=== PATIENT | male | born 1980 | race African-American/Black ===

== ENCOUNTER → 2016-09-20 | Outpatient (CLI) | payer OTHER ==
[2016-09-20 14:18] LABS: ALANINE AMINOTRANSFERASE 61 U/L (21-72); ALBUMIN 4.9 g/dL (3.5-5.0); ALKALINE PHOSPHATASE 62 U/L (38-126); ANION GAP 13 (5-19); ASPARTATE AMINO TRANSFERASE 38 U/L (17-59); BILIRUBIN,TOTAL 1.4 mg/dL (0.2-1.3); BLOOD UREA NITROGEN 9 mg/dL (7-20); CALCIUM 10.2 mg/dL (8.4-10.2); CARBON DIOXIDE 27 mmol/L (22-30); CHLORIDE 101 mmol/L (98-107); CHOLESTEROL 184.69 mg/dL (0-200); CREATININE RESULT 0.98 mg/dL (0.52-1.25); Direct HDL 50 mg/dL (>40); GLUCOSE 81 mg/dL (75-110); POTASSIUM 4.5 mmol/L (3.6-5.0); SODIUM 141.1 mmol/L (137-145); TOTAL PROTEIN 8.3 g/dL (6.3-8.2); TRIGLYCERIDES 72 mg/dL (<150)
[2016-09-20 14:30] LABS: DIRECT LDL 111 mg/dL (<100)
== END ==
LOC: CCC 12:57
DX: I10 Essential (primary) hypertension (principal); G47.33 Obstructive sleep apnea (adult) (pediatric)
CPT/HCPCS: 36415; 80053; 80061; 83036; 84443

== ENCOUNTER 2017-03-16 11:40 | Emergency (ER) | payer OTHER ==
--- NOTE | 2017-03-16 13:08 | ER Document Report ---
ED GI Bleed / Rectal Pain - General Chief Complaint: Hemorrhoids Stated Complaint: BOTTOM PAIN Time Seen by Provider: 03/16/17 12:43 Mode of Arrival: Ambulatory Information source: Patient TRAVEL OUTSIDE OF THE [place] IN LAST 30 DAYS: No - HPI Patient complains to provider of: Hemorrhoids, Rectal pain Onset: Last week Timing/Duration: Constant Quality of pain: Achy, Fullness, Pressure Severity of symptoms: Moderate Notes: 37-year-old male with a history of prior hemorrhoids presents with rectal pain over the past week. This is been worse over the past 2-3 days. He reports is disrupting his sleep. He is using preparation H, medical wipes, and using stool softener. He reports his stool is appropriately thin. He denies any bleeding. He was seen by gastroenterology approximately 2 months ago with the plan for colonoscopy. No issues of hemorrhoids were discussed at that time. His next visit is not for another month. Patient denies any nausea or vomiting , abdominal pain, or other urgent concerns. - Related Data Allergies/Adverse Reactions: iodine [Iodine] Allergy (Verified 03/16/17 11:45) swelling Shellfish * [Shellfish] Allergy (Verified 03/16/17 11:45) swelling Past Medical History - General Information source: Patient - Social History Smoking Status: Never Smoker Family History: Reviewed & Not Pertinent, Arthritis, CAD, CVA, DM, Hyperlipidemia, Hypertension, Malignancy, Thyroid Disfunction - Medical History Notes: Hypertension - Past Medical History Cardiac Medical History: Reports: Hx Hypertension Renal/ Medical History: Denies: Hx Peritoneal Dialysis Musculoskeltal Medical History: Reports Hx Arthritis, Reports Hx Musculoskeletal Deformity, Reports Hx Musculoskeletal Trauma Traumatic Medical History: Reports: Hx Fractures - Left elbow Past Surgical History: Reports: Hx Orthopedic Surgery - left elbow plates and screws - Immunizations Immunizations up to date: Yes Hx Diphtheria, Pertussis, Tetanus Vaccination: Yes Hx Pneumococcal Vaccination: 07/30/00 Review of Systems - Review of Systems Notes: REVIEW OF SYSTEMS: CONSTITUTIONAL : Denies fever, chills, or sweats. Denies recent illness. CARDIOVASCULAR: Denies chest pain. Denies palpitations or racing or irregular heart beat. Denies ankle edema. RESPIRATORY: Denies cough, cold, or chest congestion. Denies shortness of breath, difficulty breathing, or wheezing. GASTROINTESTINAL: Denies abdominal pain or distention. Denies nausea, vomiting , or diarrhea. Denies blood in vomitus, stools, or per rectum. Positive for rectal pain with a palpable lump at his anus. See HPI GENITOURINARY: Denies difficulty urinating, painful urination, burning, frequency, blood in urine, or discharge. MUSCULOSKELETAL: Denies back or neck pain or stiffness. Denies joint pain or swelling. SKIN: Denies rash, lesions or sores. HEMATOLOGIC : Denies easy bruising or bleeding. LYMPHATIC: Denies swollen, enlarged glands. NEUROLOGICAL: Denies confusion or altered mental status. Denies passing out or loss of consciousness. Denies dizziness or lightheadedness. Denies headache. Denies weakness or paralysis or loss of use of either side. Denies problems with gait or speech. Denies sensory loss, numbness, or tingling. Denies seizures. PSYCHIATRIC: Denies anxiety or stress. Denies depression, suicidal ideation, or homicidal ideation. ALL OTHER SYSTEMS REVIEWED AND NEGATIVE. Physical Exam - Vital signs Vitals: Temp Pulse Resp BP Pulse Ox 97.9 F 84 22 H 178/79 H 97 03/16/17 11:47 03/16/17 11:47 03/16/17 11:47 03/16/17 11:47 03/16/17 11:47 - Notes Notes: PHYSICAL EXAMINATION: GENERAL: Well-appearing, well-nourished and in no acute distress. HEAD: Atraumatic, normocephalic. ENT: Nares patent, oropharynx clear without exudates. Moist mucous membranes. NECK: Normal range of motion, supple without lymphadenopathy LUNGS: Breath sounds clear to auscultation bilaterally and equal. No wheezes rales or rhonchi. HEART: Regular rate and rhythm without murmurs ABDOMEN: Soft, nontender, nondistended abdomen. No guarding, no rebound. No masses appreciated. Rectal: Notable bulge on the right side of the anus. This is consistent with a thrombosed hemorrhoid. There is no blood present. The area is slightly tender. Musculoskeletal: Normal range of motion, no pitting or edema. No cyanosis. NEUROLOGICAL: Cranial nerves grossly intact. Normal speech, normal gait. Normal sensory, motor exams PSYCH: Normal mood, normal affect. SKIN: Warm, Dry, normal turgor, no rashes or lesions noted. Course - Re-evaluation Re-evalutation: 03/16/17 13:08 37-year-old male with the appearance of a thrombosed hemorrhoid. We will continue steroid medications. I will prescribe HC mental, which has lidocaine as well for discomfort. 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 - Vital Signs Vital signs: Temp Pulse Resp BP Pulse Ox 97.9 F 84 22 H 178/79 H 97 03/16/17 11:47 03/16/17 11:47 03/16/17 11:47 03/16/17 11:47 03/16/17 11:47 Discharge - Discharge Clinical Impression: Acute hemorrhoid Condition: Good Disposition: HOME, SELF-CARE Additional Instructions: Hemorrhoids You have hemorrhoids. These are formed by enlargement of veins around the anus. The cause is increased pressure in the veins, from or straining at bowel movements. Hemorrhoids often cause itching and bleeding with bowel movements. When a hemorrhoid becomes clotted, severe pain and swelling result. Soothing creams and suppositories are often prescribed. Warm sitz-baths may also decrease pain, swelling, and itching. Eat a high-fiber diet. Stool softeners such as Metamucil will help. Keep the area very clean. Medicated cleansing pads (such as Tucks) are useful after bowel movements. A hose-mounted shower unit (like a shower massager at low water pressure) can be used to clean around tender hemorrhoid tags. You should call the doctor or return if you develop fever, increasing pain , or an enlarging mass around the anus, or if you simply fail to improve with treatment. Prescriptions: Hydrocortisone/Lidocaine/Aloe [Lidocaine-Hc 2-2% Cream Kit] 1 each RC QID #20 kit Referrals: FERN RENO MD [[facility]] - Follow up in 3-5 days
[2017-03-16 13:39] VITALS: BP 123/76
== END 2017-03-16 13:39 | disposition home or self-care (01) ==
LOC: ER 11:40
DX: K64.9 Unspecified hemorrhoids (principal)
CPT/HCPCS: 99282

== ENCOUNTER → 2017-06-28 | Outpatient (CLI) | payer OTHER ==
[2017-06-28 17:26] LABS: ANION GAP 14 (5-19); BLOOD UREA NITROGEN 12 mg/dL (7-20); CALCIUM 9.8 mg/dL (8.4-10.2); CARBON DIOXIDE 27 mmol/L (22-30); CHLORIDE 103 mmol/L (98-107); CREATININE RESULT 1.05 mg/dL (0.52-1.25); GLUCOSE 82 mg/dL (75-110); POTASSIUM 4.3 mmol/L (3.6-5.0); SODIUM 143.9 mmol/L (137-145)
[2017-06-28 18:36] LABS: CHLAM PCR NOT DETECTED (NOT DETECT)
== END ==
LOC: OD 15:39
DX: N39.8 Other specified disorders of urinary system (principal); R30.0 Dysuria
CPT/HCPCS: 36415; 80048; 87491; 87591

== ENCOUNTER 2017-10-09 13:29 | Emergency (ER) | payer SELFPAY ==
[2017-10-09] MEDS ORDERED: KETOROLAC TROMETHAMINE INJ/PF 30 MG/1 ML SDV IM ONE (14:51)
--- NOTE | 2017-10-09 14:57 | ER Document Report ---
ED Neck/Back Problem - General Chief Complaint: Back Pain Stated Complaint: BACK/SHOULDER PAIN Time Seen by Provider: 10/09/17 14:19 Mode of Arrival: Ambulatory Information source: Patient TRAVEL OUTSIDE OF THE [place] IN LAST 30 DAYS: No - HPI Patient complains to provider of: Pain, Lower back Onset: Last week Notes: The patient is here with multiple complaints. Been having some lower back pain and spasms for the last week now. He denies any traumatic injury or fall. He states that he recently started walking and thinks that that is what has flared his back up. He is on no blood thinning medications, he denies any bowel or bladder dysfunction, IV drug use, fever, numbness, tingling, weakness. Pain is worse with movement of the lower back. It seems to be better when he is laying flat. He also complained of some left trapezius muscle pain. This is been going on for the last 3-4 days. Pain is worse with touching the area and movement. He states that he sleeps on his side and thinks that he slept wrong on his arm. He denies any numbness, tingling, weakness to the arm. He denies any chest pain or shortness of breath. He also complains of some left elbow pain. He states that this pain is chronic. He had a prior olecranon fracture and has hardware in his elbow. He tells me that the orthopedic surgeon would like to remove the hardware, but he does not want to go through the surgery and has had pain in his elbow ever since having surgery. There has been no new injury to this area. He denies any redness, fever, numbness, tingling, weakness distal. Patient has no other complaints at this time. - Related Data Allergies/Adverse Reactions: iodine [Iodine] Allergy (Verified 03/16/17 11:45) swelling Shellfish * [Shellfish] Allergy (Verified 03/16/17 11:45) swelling Past Medical History - Social History Smoking Status: Never Smoker Chew tobacco use (# tins/day): No Frequency of alcohol use: Occasional Drug Abuse: None Family History: Reviewed & Not Pertinent, Arthritis, CAD, CVA, DM, Hyperlipidemia, Hypertension, Malignancy, Thyroid Disfunction Patient has suicidal ideation: No Patient has homicidal ideation: No - Past Medical History Cardiac Medical History: Reports: Hx Hypertension Renal/ Medical History: Denies: Hx Peritoneal Dialysis Musculoskeltal Medical History: Reports Hx Arthritis, Reports Hx Musculoskeletal Deformity, Reports Hx Musculoskeletal Trauma Traumatic Medical History: Reports: Hx Fractures - Left elbow Past Surgical History: Reports: Hx Orthopedic Surgery - left elbow plates and screws - Immunizations Immunizations up to date: Yes Hx Diphtheria, Pertussis, Tetanus Vaccination: Yes Hx Pneumococcal Vaccination: 07/30/00 Review of Systems - Review of Systems -: Yes All other systems reviewed and negative Physical Exam - Vital signs Vitals: Temp Pulse Resp BP Pulse Ox 98.1 F 84 18 183/102 H 97 10/09/17 13:36 10/09/17 13:36 10/09/17 13:36 10/09/17 13:36 10/09/17 13:36 - Notes Notes: GENERAL: alert, cooperative, nontoxic, no distress. HEAD: normocephalic, atraumatic EYES: conjunctiva pink without discharge, no external redness or swelling. EARS: no external swelling, no external redness NOSE: atraumatic, no external swelling MOUTH/THROAT: mucous membranes moist and pink, posterior pharynx without erythema, swelling, exudate. No trismus or drooling. NECK: soft, supple, full range of motion, no meningismus. CHEST: no distress, lungs clear and equal throughout. No wheezing, rales, rhonchi. CARDIAC: regular rate and rhythm, no murmur, normal capillary refill, normal pulses. No peripheral edema noted. ABDOMEN: soft, nontender, no pusatile mass. BACK: No CVA tenderness. Tenderness to the bilateral lumbar paraspinal muscles. No midline tenderness step-offs or crepitus. No rash. EXTREMITIES: full range of motion of all extremities. No redness, no swelling. Mild tenderness to palpation of the left trapezius muscle with mild muscle spasm. Full range of motion of the left arm. No rash noted in this area. Healed postsurgical incision to the left elbow with no significant tenderness. No swelling or redness. Compartments are soft. Full range of motion. NEURO: alert and oriented A&O x 3, no focal deficits, full range of motion of all extremities. 5 out of 5 flexion and extension of the lower extremities bilaterally. Patellar and Achilles deep tendon reflexes are +2 bilaterally. Normal sensation with no saddle anesthesia. Patient can dorsiflex the great toes bilaterally. PYSCH: appropriate mood, affect. Patient is cooperative. SKIN: pink, warm, dry, no rash. Course - Re-evaluation Re-evalutation: 10/09/17 14:54 Patient is nontoxic appearing with stable vitals. The patient is here with complaints of low back pain, left elbow pain, left trapezius pain. Said no recent falls or injuries. Low back pain certainly appears to be muscular skeletal in nature. This is started after he started walking a mile to help himself lose weight. He has no midline tenderness. He has no sign of cauda equina, epidural abscess/bleed, AAA, discitis, osteomyelitis, limb ischemia. Patient also has some left trapezius muscle spasm noted. There was no trauma. He has no chest pain or shortness of breath. This does not appear to be ACS. Left elbow pain is chronic from prior injury. There is no signs of acute infection or new injury to this area. He has normal neurovascular exam at this time. This point the patient will be given a shot of Toradol in the emergency department. He will be discharged home with Voltaren and Zanaflex. He is instructed to continue walking. To stretch as much as possible. To follow-up if not better in 1 week, sooner for increasing pain, high fever, numbness, tingling, weakness, bowel or bladder dysfunction, redness, any further concerns. The patient's emergency department workup and current diagnosis were explained to the patient and or family. Follow-up instructions were provided. Medications if prescribed were discussed. Instructions for when to return to the emergency department including specific worrisome symptoms were discussed with the patient and/or family. Patient has a history of hypertension and states that he has taken his blood pressure medication this morning. He has no hypertensive symptoms at this time. - Vital Signs Vital signs: Temp Pulse Resp BP Pulse Ox 98.1 F 84 18 183/102 H 97 10/09/17 13:36 10/09/17 13:36 10/09/17 13:36 10/09/17 13:36 10/09/17 13:36 Discharge - Discharge Clinical Impression: Chronic pain of left elbow Lumbar strain Qualifiers: Encounter type: initial encounter Qualified Code(s): S39.012A - Strain of muscle, fascia and tendon of lower back, initial encounter Strain of left trapezius muscle Qualifiers: Encounter type: initial encounter Qualified Code(s): S46.812A - Strain of other muscles, fascia and tendons at shoulder and upper arm level, left arm, initial encounter Condition: Stable Disposition: HOME, SELF-CARE Instructions: Low Back Pain ([facility]), Chronic Pain Control ([facility]) Additional Instructions: Take medications as prescribed. Apply heat to sore area. Stretch. Continue walking. Follow-up with your doctor if not better in 1 week, sooner for increasing pain, high fever, numbness, tingling, weakness, bowel or bladder dysfunction, chest pain or shortness of breath, redness or swelling, or for any further concerns. Your blood pressure was elevated during today's visit. Have this rechecked with your doctor. The medication you were prescribed today may cause drowsiness. Do not drive or operate heavy machinery while taking this medication. Prescriptions: Diclofenac Sodium [Voltaren 50 Mg Tablet.] 50 mg PO BID #20 tablet. Tizanidine HCl [Zanaflex 4 Mg Tablet] 4 mg PO BID PRN #10 tablet PRN Reason: Forms: Elevated Blood Pressure, Smoking Cessation Education Referrals: [facility] [Provider Group] - Follow up as needed
[2017-10-09 15:25] VITALS: BP 162/101
== END 2017-10-09 15:25 | disposition home or self-care (01) ==
LOC: ER 13:29
DX: S39.012A Strain of muscle, fascia and tendon of lower back, initial encounter (principal); S29.012A Strain of muscle and tendon of back wall of thorax, initial encounter; X58.XXXA Exposure to other specified factors, initial encounter; M62.830 Muscle spasm of back; M25.522 Pain in left elbow; G89.29 Other chronic pain; I10 Essential (primary) hypertension; Z87.81 Personal history of (healed) traumatic fracture; Z98.890 Other specified postprocedural states; Z91.013 Allergy to seafood; Z79.899 Other long term (current) drug therapy
CPT/HCPCS: 99283; 96372; J1885

== ENCOUNTER 2017-12-13 21:00 | Emergency (ER) | payer SELFPAY ==
[2017-12-13] MEDS ORDERED: ACETAMINOPHEN 325 MG TABLET PO ONE (21:46)
[2017-12-13] MEDS ORDERED: ACETAMINOPHEN 325 MG TABLET ONE (21:49)
--- NOTE | 2017-12-13 22:41 | RADIOLOGY REPORT (SQ) ---
EXAM DESCRIPTION: KNEE RIGHT 4 VIEWS COMPLETED DATE/TIME: 12/13/2017 10:30 pm REASON FOR STUDY: fall COMPARISON: None. NUMBER OF VIEWS: Four views. TECHNIQUE: AP, lateral, and both oblique radiographic images acquired of the right knee. LIMITATIONS: None. FINDINGS: MINERALIZATION: Normal. BONES: No acute fracture or dislocation. No worrisome bone lesions. JOINT: No effusion. SOFT TISSUES: No soft tissue swelling. No radio-opaque foreign body. OTHER: No other significant finding. IMPRESSION: NEGATIVE STUDY OF THE RIGHT KNEE. NO RADIOGRAPHIC EVIDENCE OF ACUTE INJURY. TECHNICAL DOCUMENTATION: JOB ID: [id number] [employer]- All Rights Reserved Reading location - IP/workstation name: [email or web address]
--- NOTE | 2017-12-14 00:42 | ER Document Report ---
HPI - HPI Pain Level: 5 Notes: Patient is a 37-year-old male no significant past medical history presents to the ED complaining of right knee pain status post injury prior to arrival. Patient states that he is working on the yard when he stepped in a hole and twisted his knee. Patient states that he has had difficulty weightbearing since then due to the pain. Patient states that his knee does feel a little unstable as well. He has not noticed any obvious swelling or bruising. Pain does not radiate. Tylenol was given at triage. Denies any smoking or IV drug use. Denies any headache, fever, URI, sore throat, chest pain, palpitations, syncope, cough, shortness of breath, wheeze, dyspnea, abdominal pain, nausea/ vomiting/diarrhea, urinary retention, dysuria, hematuria, loss of control of bowel or bladder, numbness/tingling, saddle anesthesia, muscle paralysis/ weakness, or rash. - ROS Systems Reviewed and Negative: Yes All other systems reviewed and negative - EENT EENT: DENIES: Sore Throat, Ear Pain, Eye problems - NEURO Neurology: DENIES: Headache, Weakness, Vision blurred, Dizzinesss / Vertigo - CARDIOVASCULAR Cardiovascular: DENIES: Chest pain - RESPIRATORY Respiratory: DENIES: Trouble Breathing, Coughing - GASTROINTESTINAL Gastrointestinal: DENIES: Abdominal Pain, Black / Bloody Stools - URINARY Urinary: DENIES: Dysuria, Urgency, Frequency - REPRODUCTIVE Reproductive: DENIES: : - MUSCULOSKELETAL Musculoskeletal: REPORTS: Extremity pain - r knee Past Medical History - Social History Smoking Status: Never Smoker Family History: Reviewed & Not Pertinent, Arthritis, CAD, CVA, DM, Hyperlipidemia, Hypertension, Malignancy, Thyroid Disfunction Patient has suicidal ideation: No Patient has homicidal ideation: No - Past Medical History Cardiac Medical History: Reports: Hx Hypertension Renal/ Medical History: Denies: Hx Peritoneal Dialysis Musculoskeltal Medical History: Reports Hx Arthritis, Reports Hx Musculoskeletal Deformity, Reports Hx Musculoskeletal Trauma Traumatic Medical History: Reports: Hx Fractures - Left elbow Past Surgical History: Reports: Hx Orthopedic Surgery - left elbow plates and screws - Immunizations Immunizations up to date: Yes Hx Diphtheria, Pertussis, Tetanus Vaccination: Yes Hx Pneumococcal Vaccination: 07/30/00 Vertical Provider Document - CONSTITUTIONAL Agree With Documented VS: Yes Notes: PHYSICAL EXAMINATION: GENERAL: Well-appearing, well-nourished and in no acute distress. LUNGS: Breath sounds clear to auscultation bilaterally and equal. No wheezes rales or rhonchi. HEART: Regular rate and rhythm without murmurs, rubs, gallops. Musculoskeletal: Rt knee: FROM to passive/active. Strength 5+/5. N/V intact distal. + tenderness to the medial joint line. No obvious effusion, erythema, warmth, or swelling. Unable to adequately assess ligaments/meniscus due to resistance at this time. Extremities: No cyanosis, clubbing, or edema b/l. Peripheral pulses 2+. Capillary refill less than 3 seconds. NEUROLOGICAL: Normal speech, limping gait. Normal sensory, motor exams PSYCH: Normal mood, normal affect. SKIN: Warm, Dry, normal turgor, no rashes or lesions noted. - INFECTION CONTROL TRAVEL OUTSIDE OF THE [place] IN LAST 30 DAYS: No Course - Re-evaluation Re-evalutation: 12/14/17 00:40 Patient is an afebrile, well-hydrated, 37-year-old male who presents to the ED with right knee pain, suspect sprain versus internal knee involvement. Vitals are acceptable. PE is otherwise unremarkable for any neurovascular compromise, obvious tendon/ligament rupture, obvious fracture/dislocation, septic joint. Knee immobilizer cannot fit so an Josh wrap was applied and crutches provided. Patient had Tylenol at triage. X-ray was unremarkable for any acute pathology. No other labs or imaging warranted at this time based on H&P. I will send him home with a prescription for naproxen. Conservative measures otherwise for symptoms. Recheck with your PCM in 3-5 days. Schedule consult with orthopedics for further evaluation and management. Return to the ED with any worsening/concerning symptoms otherwise as reviewed discharge. Patient is in agreement. - Vital Signs Vital signs: Temp Pulse Resp BP Pulse Ox 98.7 F 87 16 124/60 97 12/13/17 21:42 12/13/17 21:42 12/13/17 21:42 12/13/17 21:42 12/13/17 21:42 Discharge - Discharge Clinical Impression: Right knee pain Qualifiers: Chronicity: acute Qualified Code(s): M25.561 - Pain in right knee Condition: Stable Disposition: HOME, SELF-CARE Instructions: Ice & Elevation ([facility]), Suspected Internal Knee Injury ([facility]), Sprained Knee ([facility]), Use of Crutches ([facility]) Additional Instructions: Rest, Ice, Compression, Elevation Use crutches/splint as directed Tylenol/ibuprofen as needed Light stretches daily Strength exercises as able Moist heat and massage may help F/u with your PCP in 3-5 days for a recheck Call orthopedics tomorrow to schedule an appointment for further evaluation and management Return to the ED with any worsening symptoms and/or development of fever, headache, chest pain, palpitations, syncope, shortness of breath, trouble breathing, abdominal pain, n/v/d, muscle weakness/paralysis, numbness/tingling, swelling, redness, or other worsening symptoms that are concerning to you. Prescriptions: Naproxen 500 mg PO BID PRN #30 tablet PRN Reason: Referrals: [facility] ([facility]) [Provider Group] - Follow up in 3-5 days
[2017-12-14 01:07] VITALS: BP 149/84
== END 2017-12-14 01:04 | disposition home or self-care (01) ==
LOC: ER 21:00
DX: M25.561 Pain in right knee (principal); X50.0XXA Overexertion from strenuous movement or load, initial encounter; Y93.H9 Activity, other involving exterior property and land maintenance, building and construction; I10 Essential (primary) hypertension
CPT/HCPCS: 99283

== ENCOUNTER → 2018-01-16 | Outpatient (CLI) | payer OTHER ==
--- NOTE | 2018-01-17 11:51 | RADIOLOGY REPORT (SQ) ---
EXAM DESCRIPTION: MRI RT LOWER JOINT WITHOUT COMPLETED DATE/TIME: 01/16/2018 8:07 am REASON FOR STUDY: RIGHT KNEE PAIN (M25.561) M25.561 PAIN IN RIGHT KNEE COMPARISON: Right knee four views 12/13/2017 TECHNIQUE: Rightknee images acquired and stored on PACS. Multiplanar images include fat sensitive s equences as T1, water sensitive sequences as FST2 or STIR, cartilage sensitive sequences as FSPD, and gradient echo sequences. LIMITATIONS: Large patient FINDINGS: JOINT AND BURSAE: No suprapatellar knee joint effusion. No Dickinson's cyst. BONE CORTEX AND MARROW: There is focal high-grade chondromalacia in the weight-bearing surface medial femoral condyle on coronal image 14. Adjacent subcortical edema is present in the medial femoral co ndyle. No discrete osteochondral fracture identified. ACL: Intact. No degeneration or ganglion cyst. PCL: Intact. MCL: Intact. No periligamentous edema or fluid. LCL: Intact. No periligamentous edema or fluid. MEDIAL MENISCUS: No tears. No abnormal signal. LATERAL MENISCUS: No tears. No abnormal signal. MEDIAL COMPARTMENT: Focal high-grade chondromalacia in the weight-bearing surface medial femoral cond yles. Adjacent subcortical edema is present without discrete osteochondral fracture identified LATERAL COMPARTMENT: Cartilage preserved. No bone bruises or reactive marrow edema. No osteophytes. PATELLA: No chondromalacia. No subchondral cysts. Medial and lateral retinacula intact. EXTENSOR MECHANISM: Intact. Quadriceps and patella tendons normal. SOFT TISSUES: Adjacent muscles and subcutaneous tissues normal. Normal flow void in popliteal artery and vein. OTHER: No other significant finding. 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 TECHNICAL DOCUMENTATION: JOB ID: [id number] [employer]- All Rights Reserved Reading location - IP/workstation name: [email or web address]
== END ==
LOC: RAD 07:12
DX: M25.561 Pain in right knee (principal)

== ENCOUNTER 2018-03-10 11:31 | Emergency (ER) | payer MEDICAID, OTHER ==
[2018-03-10] MEDS ORDERED: MORPHINE SULFATE 10 MG/ML INJ IM ONE (12:17)
[2018-03-10] MEDS ORDERED: ONDANSETRON 4 MG TAB.RAPDIS PO ONE (12:17)
[2018-03-10 12:51] LABS: APPEARANCE,URINE CLEAR; BILIRUBIN,URINE NEGATIVE (NEGATIVE); COLOR,URINE YELLOW; GLUCOSE, URINE NEGATIVE (NEGATIVE); KETONES,URINE NEGATIVE (NEGATIVE); LEUKOCYTE ESTERASE,URINE NEGATIVE (NEGATIVE); NITRITE,URINE NEGATIVE (NEGATIVE); PROTEIN,URINE 100 mg/dL (NEGATIVE); URINE SPECIFIC GRAVITY 1.023
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
[2018-03-10 16:58] VITALS: BP 160/85
== END 2018-03-10 13:30 | disposition home or self-care (01) ==
LOC: ER 11:31
DX: R30.0 Dysuria (principal); R10.9 Unspecified abdominal pain; I10 Essential (primary) hypertension; M25.522 Pain in left elbow; R30.9 Painful micturition, unspecified; Z87.891 Personal history of nicotine dependence
CPT/HCPCS: 99284; 96372; 81001; S0119; J2270

== ENCOUNTER 2018-07-07 08:15 | Emergency (ER) | payer OTHER, MEDICAID ==
[2018-07-07] MEDS ORDERED: METHOCARBAMOL 750 MG TABLET PO ONE (09:25)
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
[2018-07-07 12:09] VITALS: BP 134/61
== END 2018-07-07 12:00 | disposition home or self-care (01) ==
LOC: ER 08:15
DX: S39.012A Strain of muscle, fascia and tendon of lower back, initial encounter (principal); S29.019A Strain of muscle and tendon of unspecified wall of thorax, initial encounter; S16.1XXA Strain of muscle, fascia and tendon at neck level, initial encounter; M54.9 Dorsalgia, unspecified; M54.2 Cervicalgia; M25.519 Pain in unspecified shoulder; V87.7XXA Person injured in collision between other specified motor vehicles (traffic), initial encounter; I10 Essential (primary) hypertension
CPT/HCPCS: 99283; 72050; 72100; 72070; J3490

== ENCOUNTER 2019-06-14 09:17 | Emergency (ER) | payer MEDICAID, OTHER ==
[2019-06-14] MEDS ORDERED: METHYLPREDNISOLONE INJ 125 MG/2 ML SDV IV ONE (09:51)
[2019-06-14] MEDS ORDERED: DIPHENHYDRAMINE HCL 50 MG/ML VIAL IV ONE (09:51)
[2019-06-14] MEDS ORDERED: FAMOTIDINE INJ/PF 20 MG/2 ML SDV IV ONE (09:52)
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
[2019-06-14 10:34] LABS: ABSOLUTE LYMPHOCYTES (AUTO) 1.5 10^3/uL (0.5-4.7); ABSOLUTE MONOCYTES (AUTO) 1.3 10^3/uL (0.1-1.4); ABSOLUTE NEUT (AUTO) 12.4 10^3/uL (1.7-8.2); BASOPHILS % (AUTO) 0.3 % (0-2); HEMATOCRIT 45.7 % (37.9-51.0); HEMOGLOBIN 15.5 g/dL (13.5-17.0); LYMPHOCYTES % (AUTO) 9.7 % (13-45); MEAN CORPUSCULAR HEMOGLOBIN 30.1 pg (27.0-33.4); MEAN CORPUSCULAR HGB CONC 33.8 g/dL (32.0-36.0); MEAN CORPUSCULAR VOLUME 89 fl (80-97); MONOCYTES % (AUTO) 8.6 % (3-13); PLATELET COUNT 284 10^3/uL (150-450); RED BLOOD COUNT 5.14 10^6/uL (4.35-5.55); RED CELL DISTRIBUTION WIDTH 14.3 % (11.5-14.0); SEGMENTED NEUTROPHILS % (AUTO) 81.4 % (42-78); TOTAL CELLS COUNTED % (AUTO) 100 %; WHITE BLOOD COUNT 15.2 10^3/uL (4.0-10.5)
[2019-06-14 10:54] LABS: ALBUMIN 4.8 g/dL (3.5-5.0); ALKALINE PHOSPHATASE 59 U/L (38-126); ANION GAP 16 (5-19); ASPARTATE AMINO TRANSFERASE 45 U/L (17-59); BILIRUBIN,DIRECT 0.2 mg/dL (0.0-0.4); BILIRUBIN,TOTAL 0.5 mg/dL (0.2-1.3); BLOOD UREA NITROGEN 13 mg/dL (7-20); CALCIUM 10.2 mg/dL (8.4-10.2); CARBON DIOXIDE 23 mmol/L (22-30); CHLORIDE 104 mmol/L (98-107); GLUCOSE 265 mg/dL (75-110); POTASSIUM 4.6 mmol/L (3.6-5.0); TOTAL PROTEIN 8.7 g/dL (6.3-8.2)
--- NOTE | 2019-06-14 12:23 | RADIOLOGY REPORT (SQ) ---
EXAM DESCRIPTION: CT SOFT TISSUE NECK WITH COMPLETED DATE/TIME: 06/14/2019 11:23 am REASON FOR STUDY: feels like throat closing COMPARISON: Cervical spine radiographs 07/07/2018 TECHNIQUE: Post IV contrasted scanning from skull base through lung apices with review of bone, soft tissue and lung windows. Reconstructed coronal and sagittal MPR images reviewed. All images stored on PACS. All CT scanners at this facility use dose modulation, iterative reconstruction, and/or weight based d osing when appropriate to reduce radiation dose to as low as reasonably achievable (ALARA). [facility]: Dose Right [facility]: CareDose [facility]: Dose Right [facility]: Teradose 4D [facility]: Client24 CONTRAST TYPE AND DOSE: contrast/concentration: Isovue 350.00 mg/ml; Total Contrast Delivered: 75.0 ml; Total Saline Delivered: 55.0 ml Patient has an iodine allergy, received IV steroid prep prior to CT scanning without immediate contra st reaction RENAL FUNCTION: Creatinine 1.2 RADIATION DOSE: CT Rad equipment meets quality standard of care and radiation dose reduction techniq ues were employed. CTDIvol: 17.8 mGy. DLP: 491 mGy-cm. . LIMITATIONS: None. FINDINGS: The soft palate and uvula appear swollen, hanging inferiorly into the oropharynx causing h igh-grade oropharyngeal narrowing on axial images 20-25. This finding was discussed with Dr. Lindsay in the emergency room. Lateral cervical spine film from 07/07/2018 demonstrates a prominent soft pal ate and uvula at that time. The hypopharynx, laryngeal airway, and trachea are widely patent. SKULL BASE: Intact. MAJOR SALIVARY GLANDS: No solid or cystic masses. No inflammatory changes. LYMPHADENOPATHY: No adenopathy. MUCOSAL MASSES OR ASYMMETRY: No mucosal masses or asymmetry. LARYNX/CORDS: No abnormal findings. VASCULAR STRUCTURES: The major vessels are patent. LUNG APICES: Clear. BONES: Intact. THYROID: Normal size. No masses. PARANASAL SINUSES: Clear. OTHER: No other significant finding. IMPRESSION: Prominent soft palate and uvula causing seng pharyngeal airway narrowing. Question angio edema. Report called to attending emergency room physician as above TECHNICAL DOCUMENTATION: JOB ID: [id number] Quality ID # [id number]: Final reports with documentation of one or more dose reduction techniques (e.g., Au tomated exposure control, adjustment of the mA and/or kV according to patient size, use of iterative reconstruction technique) 2010 [employer]- All Rights Reserved Reading location - IP/workstation name: [email or web address]
[2019-06-14] MEDS ORDERED: CEFTRIAXONE 1 GM/D5W RTU 1 GM/50 ML RTUPB IV ONE (13:10)
[2019-06-14] MEDS ORDERED: KETOROLAC TROMETHAMINE INJ/PF 30 MG/1 ML SDV IV ONE (13:10)
--- NOTE | 2019-06-14 15:50 | ER Document Report ---
Entered by MILIND MARINELLI SCRIBE 06/14/19 1128 Acting as scribe for:NANCY WALLACE MD ED ENT - General Chief Complaint: Sore Throat Stated Complaint: SORE THROAT Time Seen by Provider: 06/14/19 09:48 Primary Care Provider: ERNESTO LOPEZ MD [Primary Care Provider] - Follow up as needed Mode of Arrival: Ambulatory Information source: Patient Notes: 39-year-old male who presents to the emergency department today with complaints of a sensation that his throat is swelling with associated irritation since yesterday. Patient states he is not having any difficulty swallowing or handling his secretions, he just feels like it is swollen "back there". patient denies any fevers. Pertinent PMHx/PSHx: On pain management for lower back pain PCP: Ernesto Lopez TRAVEL OUTSIDE OF THE [place] IN LAST 30 DAYS: No - Related Data Allergies/Adverse Reactions: iodine [Iodine] Allergy (Verified 06/14/19 09:35) swelling Shellfish * [Shellfish] Allergy (Verified 06/14/19 09:35) swelling Home Medications: welbutrin. lisinopril. oxycodone. trazadone. omeprazole Past Medical History - General Information source: Patient - Social History Smoking Status: Former Smoker - quit x5-6 years Cigarette use (# per day): No Chew tobacco use (# tins/day): No Frequency of alcohol use: Occasional Drug Abuse: None Lives with: Family Family History: Reviewed & Not Pertinent, Arthritis, CAD, CVA, DM, Hyperlipidemia, Hypertension, Malignancy, Thyroid Disfunction Patient has suicidal ideation: No Patient has homicidal ideation: No - Past Medical History Cardiac Medical History: Reports: Hx Hypertension Musculoskeletal Medical History: Reports Hx Arthritis, Reports Hx Musculoske letal Deformity, Reports Hx Musculoskeletal Trauma Traumatic Medical History: Reports: Hx Fractures - Left elbow Past Surgical History: Reports: Hx Orthopedic Surgery - left elbow plates and screws - Immunizations Immunizations up to date: Yes Hx Diphtheria, Pertussis, Tetanus Vaccination: Yes Hx Pneumococcal Vaccination: 07/30/00 Review of Systems - Review of Systems Constitutional: denies: Fever EENT: See HPI, Throat pain. denies: Difficulty swallowing Cardiovascular: No symptoms reported Respiratory: No symptoms reported Gastrointestinal: No symptoms reported Genitourinary: No symptoms reported Male Genitourinary: No symptoms reported Musculoskeletal: No symptoms reported Skin: No symptoms reported Hematologic/Lymphatic: No symptoms reported Neurological/Psychological: No symptoms reported -: Yes All other systems reviewed and negative Physical Exam - Vital signs Vitals: Temp Pulse Resp BP Pulse Ox 98 F 115 H 34 H 171/81 H 98 06/14/19 09:22 06/14/19 09:22 06/14/19 09:22 06/14/19 09:22 06/14/19 09:22 - Notes Notes: Physical Exam: General: Alert, appears well. HEENT: Normocephalic. Atraumatic. PERRL. Extraocular movements intact. Oropharynx clear. No posterior oropharynx swelling, airway is patent. There is some posterior oropharynx erythema consistent with a viral illness. The uvula is not grossly edematous but it does have a lumpy appearance again consistent with viral illness. No anterior cervical or posterior cervical lymphadenopathy, endorses some tenderness minimally with palpation of the anterior cervical lymph nodes. Neck: Supple. Non-tender. Respiratory: No respiratory distress. Clear and equal breath sounds bilaterally. Cardiovascular: Regular rate and rhythm. Abdominal: Obese. Non-tender. No distension. Normal Bowel Sounds. Back: No gross abnormalities. Extremities: Moves all four extremities. Upper extremities: Normal inspection. Normal ROM. Lower extremities: Normal inspection. No edema. Normal ROM. Neurological: Normal cognition. AAOx4. Normal speech. Psychological: Normal affect. Normal Mood. Skin: Warm. Dry. Normal color. Course - Re-evaluation Re-evalutation: 06/14/19 15:[address] scan was read as soft palate and uvula appearing swollen, hanging inferiorly into the oropharynx causing high-grade oropharyngeal narrowing. However a lateral C-spine film from 07/07/2018 demonstrated a prominent soft palate uvula at that time. The hypopharynx, laryngeal airway and trachea were widely patent. There is no adenopathy. The impression was prominent soft palate and uvula causing oropharyngeal airway narrowing. Question of angioedema. About 13:00 I went back to reevaluate the patient, and the initial bulky lymphoid appearing usually I saw initially had shrunk down quite a bit and did not look anything like the radiology report. He had received Benadryl 50 mg, Pepcid 20 mg, and Solu-Medrol 125 mg. He states that it was feeling better. I have just now gone to see the patient again, and his uvula is entirely normal appearing. He states he feels considerably better than when I saw him 2-1/2 hours ago. The patient is on lisinopril, I do not think this was angioedema, because the onset was over a 2-day. With a sore throat, and leukocytosis. The physical exam was consistent with a viral pharyngitis. He responded quite well to antihistamines and steroids, and angioedema does not respond to those medications. He does mention that he had been on amlodipine 10 mg daily and it was not controlling his blood pressure, he was changed to lisinopril 20/HCTZ 25 and that was controlling his blood pressure. I do not think it is necessary to stop his lisinopril, as nothing about his physical exam or his response to medications would suggest angioedema. - Vital Signs Vital signs: Temp Pulse Resp BP Pulse Ox 98 F 115 H 34 H 171/81 H 98 06/14/19 09:22 06/14/19 09:22 06/14/19 09:22 06/14/19 09:22 06/14/19 09:22 - Laboratory Result Diagrams: 06/14/19 10:22 06/14/19 10:22 Laboratory results interpreted by me: 06/14/19 06/14/19 10:22 10:22 WBC 15.2 H RDW 14.3 H Lymph % (Auto) 9.7 L Absolute Neuts (auto) 12.4 H Seg Neutrophils % 81.4 H Glucose 265 H Total Protein 8.7 H - Diagnostic Test Radiology reviewed: Image reviewed, Reports reviewed Discharge - Discharge Clinical Impression: Pharyngitis Qualifiers: Pharyngitis/tonsillitis etiology: unspecified etiology Qualified Code(s): J02.9 - Acute pharyngitis, unspecified Leukocytosis Qualifiers: Leukocytosis type: unspecified Qualified Code(s): D72.829 - Elevated white blood cell count, unspecified Condition: Stable Disposition: HOME, SELF-CARE Additional Instructions: Sore Throat Sore throats may be caused by viruses, bacteria, or fungi. Most are due to a virus, and must get better on their own. Bacterial sore throats, particularly those due to "strep," need treatment with antibiotics. If an antibiotic is prescribed, be sure to take the medication for a full 10 days. Failure to take the antibiotic can result in complications such as rheumatic fever. Sometimes, an injection of antibiotics is given instead of pills or liquid. This single "shot" is equal in effectiveness to the oral medication. To relieve symptoms, take acetaminophen for pain. Sip clear liquids frequently, or eat popsicles or ice chips. Anesthetic sprays or lozenges may h elp. Make sure the air in the room is not too dry. Avoid using decongestants or antihistamines. Call the doctor if there is no improvement in two days, or if you have difficulty breathing, increasing throat pain, high fever, rash, or frequent vomiting. Take medications as prescribed. Drink plenty of fluids and get plenty of rest. Take Tylenol for fever if needed. Take Aleve or ibuprofen for pain if needed. Follow-up with your primary care provider this week if not improving. Return to emergency room immediately if you start noticing any swelling in your throat. RETURN TO THE EMERGENCY ROOM IF ANY NEW OR WORSENING SYMPTOMS. Prescriptions: Clindamycin HCl 300 mg PO QID #30 capsule Prednisone [Deltasone 10 mg Tablet] 10 mg PO ASDIR PRN #21 tablet PRN Reason: Forms: Return to Work Referrals: ERNESTO LOPEZ MD [Primary Care Provider] - Follow up as needed Scribe Attestation: 06/14/19 15:43 I personally performed the services described in the documentation, reviewed and edited the documentation which was dictated to the scribe in my presence, and it accurately records my words and actions. I personally performed the services described in the documentation, reviewed and edited the documentation which was dictated to the scribe in my presence, and it accurately records my words and actions.
[2019-06-14 16:09] VITALS: BP 154/87
== END 2019-06-14 16:11 | disposition home or self-care (01) ==
LOC: ER 09:17
DX: J02.9 Acute pharyngitis, unspecified (principal); D72.829 Elevated white blood cell count, unspecified; Z79.899 Other long term (current) drug therapy; Z87.891 Personal history of nicotine dependence; I10 Essential (primary) hypertension
CPT/HCPCS: 36415; 87070; 87880; 85025; 80053; 70491; J1200; J2930; J1885; S0028; J0696; 96365; 96375; 99283

== ENCOUNTER 2019-10-09 11:14 | Emergency (ER) | payer MEDICAID, OTHER ==
--- NOTE | 2019-10-09 12:55 | ER Document Report ---
ED Extremity Problem, Lower - General Chief Complaint: Foot Pain Stated Complaint: FOOT PAIN Time Seen by Provider: 10/09/19 12:46 Primary Care Provider: RICCO LOPEZ MD [Primary Care Provider] - Follow up as needed Notes: CHIEF COMPLAINT: Right calcaneal pain for 5 days HPI: 39-year-old obese male presenting to the emergency department complaining of right calcaneal pain over the last 5 days. No definitive swelling of the foot. Patient states that he had been told in the past by a primary care provider that he might have gout. States they did not do lab work to check him for gout. Denies fever. Denies trauma or injury. Did not see his PCP for evaluation of this issue ROS: See HPI - all other systems were reviewed and are otherwise negative Constitutional: no fever Integumentary: no rash Allergy: no hives Musculoskeletal: + extremity pain or swelling Neurological: no numbness/tingling, no weakness MEDICATIONS: I agree with the patient medications as charted by the RN. ALLERGIES: I agree with the allergies as charted by the RN. PAST MEDICAL HISTORY/PAST SURGICAL HISTORY: Reviewed and agree as charted by RN. SOCIAL HISTORY: Reviewed and agree as charted by RN. FAMILY HISTORY: No significant familial comorbid conditions directly related to patient complaint EXAM: Reviewed vital signs as charted by RN. CONSTITUTIONAL: Alert and oriented and responds appropriately to questions. Well-appearing; well-nourished HEAD: Normocephalic; atraumatic EYES: PERRL; Conjunctivae clear, sclerae non-icteric ENT: normal nose; no rhinorrhea; moist mucous membranes NECK: Supple without meningismus CARD: Capillary refill less than 3 seconds; symmetric distal pulses RESP: Normal chest excursion without splinting or tachypnea ABD/GI: non-distended BACK: The back appears normal EXT: Normal ROM in all joints; there is tenderness on palpation over the calcaneus of the right foot without visible erythema or increased warmth. There is no visible swelling of the foot. There is no tenderness over the tarsals or metatarsals of the right foot. Sensation is intact in the toes with capillary refill less than 3 seconds; no cyanosis, no effusions, no edema. Dorsalis pedis and posterior tibial pulses are present in the right foot and ankle. SKIN: Normal color for age and race; warm; dry; good turgor; no acute lesions noted NEURO: Moves all extremities equally; Motor and sensory function intact PSYCH: The patient's mood and manner are appropriate. Grooming and personal hygiene are appropriate. MDM: 39-year-old obese male with pain in the right calcaneal region without history of trauma. There is no significant soft tissue swelling or erythema to suggest gout more likely that this is bursitis or a calcaneal spur. Will obtain x-ray. Will obtain basic screening labs TRAVEL OUTSIDE OF THE [place] IN LAST 30 DAYS: No - Related Data Allergies/Adverse Reactions: iodine [Iodine] Allergy (Verified 06/14/19 09:35) swelling Shellfish * [Shellfish] Allergy (Verified 06/14/19 09:35) swelling Home Medications: Wellbutrin, Lisinopril, Oxycodone, Trazadone, Prilosec Past Medical History - Social History Smoking Status: Unknown if Ever Smoked Family History: Reviewed & Not Pertinent, Arthritis, CAD, CVA, DM, Hyperlipidemia, Hypertension, Malignancy, Thyroid Disfunction Patient has suicidal ideation: No Patient has homicidal ideation: No - Past Medical History Cardiac Medical History: Reports: Hx Hypertension Renal/ Medical History: Denies: Hx Peritoneal Dialysis Musculoskeletal Medical History: Reports Hx Arthritis, Reports Hx Musculoskeletal Deformity, Reports Hx Musculoskeletal Trauma Traumatic Medical History: Reports: Hx Fractures - Left elbow Past Surgical History: Reports: Hx Orthopedic Surgery - left elbow plates and screws - Immunizations Immunizations up to date: Yes Hx Diphtheria, Pertussis, Tetanus Vaccination: Yes Hx Pneumococcal Vaccination: 07/30/00 Physical Exam - Vital signs Vitals: Temp Pulse Resp BP Pulse Ox 97.6 F 100 16 155/77 H 96 10/09/19 11:18 10/09/19 11:18 10/09/19 11:18 10/09/19 11:18 10/09/19 11:18 Course - Re-evaluation Re-evalutation: 10/09/19 14:10 X-ray does not show evidence of fracture or other abnormalities. Will place patient on anti-inflammatories, referral to orthopedics and PCP - Vital Signs Vital signs: Temp Pulse Resp BP Pulse Ox 97.6 F 100 16 155/77 H 96 10/09/19 11:18 10/09/19 11:18 10/09/19 11:18 10/09/19 11:18 10/09/19 11:18 - Laboratory Result Diagrams: 10/09/19 13:09 10/09/19 13:09 Laboratory results interpreted by me: 10/09/19 10/09/19 13:09 13:09 WBC 10.8 H Uric Acid 9.0 H Discharge - Discharge Clinical Impression: Pain of right heel Condition: Stable Disposition: HOME, SELF-CARE Additional Instructions: Follow-up closely with both your primary care provider and with orthopedics for further evaluation and treatment call for appointment. Medications as prescribed. Make sure to ice the heel 2-3 times daily for 5 to 10 minutes at a time do not place ice directly on the skin Prescriptions: Indomethacin [Indocin 25 Mg Capsule] 25 mg PO TID 7 Days #21 capsule Allopurinol [Zyloprim 100 mg Tablet] 100 mg PO DAILY #30 tablet Referrals: RICCO LOPEZ MD [Primary Care Provider] - Follow up as needed BARRY BETTS MD [ACTIVE PROVISIONAL STAFF] - Follow up as needed
[2019-10-09 13:26] LABS: ABSOLUTE BASOPHILS # (AUTO) 0.1 10^3/uL (0.0-0.2); ABSOLUTE EOSINOPHILS # (AUTO) 0.2 10^3/uL (0.0-0.6); ABSOLUTE LYMPHOCYTES (AUTO) 1.9 10^3/uL (0.5-4.7); ABSOLUTE MONOCYTES (AUTO) 0.8 10^3/uL (0.1-1.4); ABSOLUTE NEUT (AUTO) 7.8 10^3/uL (1.7-8.2); BASOPHILS % (AUTO) 0.5 % (0-2); HEMATOCRIT 43.4 % (37.9-51.0); HEMOGLOBIN 14.9 g/dL (13.5-17.0); LYMPHOCYTES % (AUTO) 17.7 % (13-45); MEAN CORPUSCULAR HEMOGLOBIN 30.9 pg (27.0-33.4); MEAN CORPUSCULAR HGB CONC 34.3 g/dL (32.0-36.0); MEAN CORPUSCULAR VOLUME 90 fl (80-97); MONOCYTES % (AUTO) 7.5 % (3-13); PLATELET COUNT 275 10^3/uL (150-450); RED BLOOD COUNT 4.81 10^6/uL (4.35-5.55); RED CELL DISTRIBUTION WIDTH 13.8 % (11.5-14.0); SEGMENTED NEUTROPHILS % (AUTO) 72.3 % (42-78); TOTAL CELLS COUNTED % (AUTO) 100 %; WHITE BLOOD COUNT 10.8 10^3/uL (4.0-10.5)
--- NOTE | 2019-10-09 13:28 | RADIOLOGY REPORT (SQ) ---
EXAM DESCRIPTION: FOOT RIGHT COMPLETE COMPLETED DATE/TIME: 10/09/2019 1:06 pm REASON FOR STUDY: calcaneal foot pain COMPARISON: None. NUMBER OF VIEWS: Three views. TECHNIQUE: AP, lateral and oblique radiographic images acquired of the right foot. LIMITATIONS: None. FINDINGS: MINERALIZATION: Normal. BONES: No acute fracture or dislocation. No worrisome bone lesions. JOINTS: No effusions. SOFT TISSUES: No soft tissue swelling. No foreign body. OTHER: No other significant finding. IMPRESSION: NO RADIOGRAPHIC EVIDENCE OF ACUTE INJURY. TECHNICAL DOCUMENTATION: JOB ID: [id number] 2010 [employer]- All Rights Reserved Reading location - IP/workstation name: [email or web address]
[2019-10-09 13:43] LABS: ANION GAP 8 (5-19); BLOOD UREA NITROGEN 12 mg/dL (7-20); CALCIUM 9.3 mg/dL (8.4-10.2); CARBON DIOXIDE 29 mmol/L (22-30); CHLORIDE 102 mmol/L (98-107); GLUCOSE 105 mg/dL (75-110); POTASSIUM 4.4 mmol/L (3.6-5.0)
[2019-10-09] MEDS ORDERED: KETOROLAC TROMETHAMINE 60 MG/2 ML SDV IM ONE (14:10)
[2019-10-09 15:23] VITALS: BP 119/77
== END 2019-10-09 15:24 | disposition home or self-care (01) ==
LOC: ER 11:14
DX: M89.8X7 Other specified disorders of bone, ankle and foot (principal); I10 Essential (primary) hypertension; Z79.899 Other long term (current) drug therapy; Z79.891 Long term (current) use of opiate analgesic
CPT/HCPCS: 99283; 96372; 36415; 84550; 85025; 80048; 73630; J1885

== ENCOUNTER 2019-10-10 22:31 | Emergency (ER) | payer MEDICAID ==
--- NOTE | 2019-10-10 22:52 | ER Document Report ---
ED Medical Screen (RME) - General Chief Complaint: Back Pain Stated Complaint: FALL/BACK PAIN Primary Care Provider: RICCO LOPEZ MD [Primary Care Provider] - Follow up as needed Notes: Patient is a 39-year-old -[place] male with past medical history significant for morbid obesity who presents to the emergency department with a chief complaint of lower back pain after a fall that occurred this morning. Patient states he slipped on the wet ground falling onto his lower back and buttock. States he had a call a friend to help him get up because he feels like he strained his back when trying to get up. Denies any numbness, tingling or weakness. Denies any urinary or bowel incontinence or retention. Denies any saddle anesthesia. I have treated and performed a rapid initial assessment of this patient. A comprehensive ED assessment and evaluation of the patient, analysis of test results and completion of medical decision making process will be conducted by additional ED providers. PHYSICAL EXAMINATION: GENERAL: Well-appearing, well-nourished and in no acute distress. A&Ox4. Answers questions appropriately. TRAVEL OUTSIDE OF THE [place] IN LAST 30 DAYS: No - Related Data Allergies/Adverse Reactions: iodine [Iodine] Allergy (Verified 10/10/19 22:44) swelling Shellfish * [Shellfish] Allergy (Verified 10/10/19 22:44) swelling Past Medical History - Social History Frequency of alcohol use: Occasional Drug Abuse: None - Past Medical History Cardiac Medical History: Reports: Hx Hypertension Renal/ Medical History: Denies: Hx Peritoneal Dialysis Musculoskeltal Medical History: Reports Hx Arthritis, Reports Hx Musculoskeletal Deformity, Reports Hx Musculoskeletal Trauma Traumatic Medical History: Reports: Hx Fractures - Left elbow Past Surgical History: Reports: Hx Orthopedic Surgery - left elbow plates and screws - Immunizations Immunizations up to date: Yes Hx Diphtheria, Pertussis, Tetanus Vaccination: Yes Physical Exam - Vital signs Vitals: Temp Pulse Resp BP Pulse Ox 98.2 F 100 20 139/73 H 96 10/10/19 22:37 10/10/19 22:37 10/10/19 22:37 10/10/19 22:37 10/10/19 22:37 Course - Vital Signs Vital signs: Temp Pulse Resp BP Pulse Ox 98.2 F 100 20 139/73 H 96 10/10/19 22:37 10/10/19 22:37 10/10/19 22:37 10/10/19 22:37 10/10/19 22:37 Doctor's Discharge - Discharge Referrals: RICCO LOPEZ MD [Primary Care Provider] - Follow up as needed
--- NOTE | 2019-10-10 23:32 | RADIOLOGY REPORT (SQ) ---
EXAM DESCRIPTION: XR LUMBAR SPINE ANTEROPOSTERIOR, LATERAL, AND OBLIQUES COMPLETED DATE/TME: 10/10/2019 22:51 CLINICAL HISTORY: 39 years, Male, pain, fall COMPARISON: Prior study from 07/07/2018 NUMBER OF VIEWS: 5 TECHNIQUE: Frontal, oblique, and lateral radiograph are obtained LIMITATIONS: None. FINDINGS: 5 nonrib-bearing lumbar-type utilized. L1-L5 are in alignment. Vertebral body and intervertebral disc heights are well-maintained. No acute fracture or malalignment is appreciated. However, there is straightening of the normal lumbar lordosis, either related to positioning and/or muscle spasm. IMPRESSION: Straightening of the normal lumbar lordosis, either related to positioning and/or muscle spasm. No additional osseous anomalies. copyright 2010 [employer]- All Rights Reserved
[2019-10-11] MEDS ORDERED: CYCLOBENZAPRINE HCL 10 MG TABLET PO ONE (02:09)
[2019-10-11] MEDS ORDERED: KETOROLAC TROMETHAMINE 60 MG/2 ML SDV IM ONE (02:09)
--- NOTE | 2019-10-11 02:37 | ER Document Report ---
HPI - HPI Time Seen by Provider: 10/11/19 01:29 Pain Level: 3 Context: 39-year-old male presents with back pain after slipping and falling while he was in the bathroom. Patient states he attempted to get up and thinks he may have strained his back again. Patient denies any numbness, tingling, weakness, urinary/bowel incontinence/retention, or saddle anesthesia. Patient also denies any fever. - CONSTITUTIONAL Constitutional: DENIES: Fever, Chills - REPRODUCTIVE Reproductive: DENIES: : Past Medical History - Social History Smoking Status: Former Smoker Frequency of alcohol use: Occasional Drug Abuse: None Family History: Reviewed & Not Pertinent, Arthritis, CAD, CVA, DM, Hyperlipidemia, Hypertension, Malignancy, Thyroid Disfunction Patient has suicidal ideation: No Patient has homicidal ideation: No - Past Medical History Cardiac Medical History: Reports: Hx Hypertension Renal/ Medical History: Denies: Hx Peritoneal Dialysis Musculoskeletal Medical History: Reports Hx Arthritis, Reports Hx Musculoskeletal Deformity, Reports Hx Musculoskeletal Trauma Traumatic Medical History: Reports: Hx Fractures - Left elbow Past Surgical History: Reports: Hx Orthopedic Surgery - left elbow plates and screws - Immunizations Immunizations up to date: Yes Hx Diphtheria, Pertussis, Tetanus Vaccination: Yes Hx Pneumococcal Vaccination: 07/30/00 Vertical Provider Document - CONSTITUTIONAL Agree With Documented VS: Yes Notes: GENERAL: Well-appearing, well-nourished and in no acute distress. HEAD: Atraumatic, normocephalic. EYES: Extraocular movements intact, sclera anicteric, conjunctiva are normal. NECK: Normal range of motion, supple without lymphadenopathy or JVD. No cervical spinal tenderness. EXTREMITIES: Normal range of motion, no pitting or edema. No clubbing or cyanosis. BACK: Muscle spasm to right lumbar paraspinal muscles. No spinal tenderness. NEUROLOGICAL: Cranial nerves II through XII grossly intact. Bilateral lower extremity strength equal. Normal speech, normal gait. PSYCH: Normal mood, normal affect. SKIN: Warm, Dry, normal turgor, no rashes or lesions noted. - INFECTION CONTROL TRAVEL OUTSIDE OF THE [place] IN LAST 30 DAYS: No Course - Re-evaluation Re-evalutation: 10/11/19 nontoxic, well-appearing 39-year-old male presents with back pain after falling. Patient has muscle spasm on exam to right lower paraspinal muscles. X-ray shows straightening of lumbar lordosis consistent with muscle spasm. Patient given Toradol IM and Flexeril. Patient also given prescription for ibuprofen and Flexeril with sedation warnings. Patient given close follow-up with PCP. Patient also given instructions on heat packs. Return precautions given. Patient voices understanding and agrees with plan of care. - Vital Signs Vital signs: Temp Pulse Resp BP Pulse Ox 98.2 F 100 20 139/73 H 96 10/10/19 22:37 10/10/19 22:37 10/10/19 22:37 10/10/19 22:37 10/10/19 22:37 Discharge - Discharge Clinical Impression: Lumbar paraspinal muscle spasm Condition: Stable Disposition: HOME, SELF-CARE Instructions: Warm Packs ([facility]), Pain Medication Injection ([facility]), Low Back Pain ([facility]), Muscle Strain ([facility]), Muscle Relaxers ([facility]) Additional Instructions: Please take medication as prescribed. Do not drink or drive while taking Flexeril as it may make you drowsy. Please use heating pad as discussed. Do not, do not place directly on skin. Please follow-up with your primary care doctor in 3 to 5 days. Return immediately to ER if you start having any worsening symptoms, including weakness, numbness, difficulty with urinating/defecating, fever, increased pain, chest pain, shortness of breath, dizziness, or any other symptoms that are concerning to you. Stretching Exercises for the Back The physician has recommended that you begin stretching exercises for your back. These are often used even while the back is painful. However, you should notify the physician if the activities seem to increase your pain. PELVIC TILT: Lie flat on your back with knees bent. Tighten your stomach and buttock muscles so it flattens your lower back against the floor. Hold 10 seconds. Repeat 10 times, twice daily. KNEE RAISE: Lying on the back with knees bent, raise one knee to your chest, then the other. Hold both knees against the chest 10 seconds, then lower one knee at a time. Repeat 10 times, twice daily. PARTIAL TRUNK RAISE: Lie face down, arms at your sides. Keeping your waist on the floor, use your arms raise your chest up. Support yourself on your elbows for 30 seconds. Repeat twice daily, increasing the time to two minutes as you recover. Prescriptions: Cyclobenzaprine HCl [Flexeril 10 mg Tablet] 10 mg PO TIDP PRN #15 tab PRN Reason: Lidocaine [Lidoderm 5% (700 mg) Transdermal Patch] 1 patch TP DAILY #10 adh..patch Ibuprofen [Motrin 800 mg Tablet] 800 mg PO Q8H PRN #30 tab PRN Reason: Forms: Return to Work Referrals: RICCO LOPEZ MD [Primary Care Provider] - Follow up in 3-5 days
[2019-10-11 03:07] VITALS: BP 131/72
== END 2019-10-11 03:08 | disposition home or self-care (01) ==
LOC: ER 22:31
DX: M62.830 Muscle spasm of back (principal); M54.9 Dorsalgia, unspecified; W01.0XXA Fall on same level from slipping, tripping and stumbling without subsequent striking against object, initial encounter; I10 Essential (primary) hypertension
CPT/HCPCS: 99283; 96372; 72110; J3490; J1885

== ENCOUNTER → 2020-03-29 | Outpatient (CLI) | payer MEDICAID | LOC: OD 12:46 | PROVIDERS: ATTEND Otolaryngology | DX: J30.9 Allergic rhinitis, unspecified (principal) | CPT/HCPCS: 36415; 82785; 86003; 96365 ==

== ENCOUNTER → 2020-04-12 | Outpatient (CLI) | payer MEDICAID ==
--- NOTE | 2020-04-13 06:15 | RADIOLOGY REPORT (SQ) ---
EXAM DESCRIPTION: CT SINUSES FOR ENT IMAGES COMPLETED DATE/TIME: 04/12/2020 7:26 am REASON FOR STUDY: ALLERGIC RHINITIS J30.9 ALLERGIC RHINITIS, UNSPECIFIED COMPARISON: None. TECHNIQUE: Noncontrast scanning through the paranasal sinuses using bone algorithm. Reconstructed MPR images reviewed. All images stored on PACS. All CT scanners at this facility use dose modulation, iterative reconstruction, and/or weight based d osing when appropriate to reduce radiation dose to as low as reasonably achievable (ALARA). [facility]: Dose Right [facility]: CareDose [facility]: Dose Right [facility]: Teradose 4D [facility]: [employer]Team RADIATION DOSE: 47mGy. LIMITATIONS: None. FINDINGS: Right sinuses and drainage pathways: Post-surgical changes: None. Frontal sinus: Normal. Frontoethmoidal Recess: Normal. Anterior Ethmoid Sinuses: Normal. Posterior Ethmoid Sinuses: Normal. Sphenoid Sinus: Normal. Sphenoethmoidal Recess: Normal. Maxillary Sinus: Normal. Ostiomeatal Complex: Rita cell on the right. There is mucous membrane thickening narrowing the ri ght maxillary outlet on coronal image 105/418. Left Sinuses and Drainage Pathways: Post-Surgical Changes: None. Frontal Sinus: Normal. Frontoethmoidal Recess: Normal. Anterior Ethmoid Sinuses: Normal. Posterior Ethmoid Sinuses: Normal. Sphenoid Sinus: Normal. Sphenoethmoidal Recess: Normal. Maxillary Sinus: Normal. Ostiomeatal Complex: Rita cell on the left. There is mucous membrane thickening narrowing the lef t maxillary outlet on coronal image 105/418 Right Olfactory Fossa: No polyps. Left Olfactory Fossa: No polyps. Middle Turbinate Chyna Bullosa: On the right Paradoxical Middle Turbinate: No. Atelectatic Uncinated Process: No. Frontal Anabel Cell Type I: Bilateral Frontal Anabel Cell Type II: No. Interfrontal Sinus Septal Cell: Manage Supra-Orbital Ethmoid: Bilateral Frontal Bullar Cell: None. Suprabullar Bullar Cell: None. Sphenoethmoidal (Onodi) Cell: None. Pneumatization of the Anterior Clinoid Processes: No Hypoplastic Maxillary Sinus: None. Osteoneogenesis: None. Bone Dehiscence:None. Nasal Cavity: Normal. Nasal Septum: Mild leftward nasal septal deviation Anatomic Variants: Right Vidian Canal: Normal. Left Vidian Canal: Normal. IMPRESSION: No air-fluid levels worrisome for sinusitis. TECHNICAL DOCUMENTATION: JOB ID: [id number] Quality ID # [id number]: Final reports with documentation of one or more dose reduction techniques (e.g., Au tomated exposure control, adjustment of the mA and/or kV according to patient size, use of iterative reconstruction technique) 2010 [employer]- All Rights Reserved Reading location - IP/workstation name: [id number]
== END ==
LOC: RAD 07:30
PROVIDERS: ATTEND Otolaryngology
DX: J30.9 Allergic rhinitis, unspecified (principal)
CPT/HCPCS: 70486

== ENCOUNTER 2020-05-05 09:27 | Day surgery (SDC) | payer MEDICAID ==
[2020-04-28 12:35] LABS: HEMATOCRIT 44.2 % (37.9-51.0); HEMOGLOBIN 15.3 g/dL (13.5-17.0); MEAN CORPUSCULAR HGB CONC 34.6 g/dL (32.0-36.0); MEAN CORPUSCULAR VOLUME 87 fl (80-97); PLATELET COUNT 311 10^3/uL (150-450); RED BLOOD COUNT 5.09 10^6/uL (4.35-5.55); RED CELL DISTRIBUTION WIDTH 13.6 % (11.5-14.0); WHITE BLOOD COUNT 9.9 10^3/uL (4.0-10.5)
[2020-04-28 12:57] LABS: ANION GAP 13 (5-19); BLOOD UREA NITROGEN 14 mg/dL (7-20); CALCIUM 9.8 mg/dL (8.4-10.2); CARBON DIOXIDE 28 mmol/L (22-30); CHLORIDE 97 mmol/L (98-107); GLUCOSE 91 mg/dL (75-110); POTASSIUM 4.1 mmol/L (3.6-5.0)
--- NOTE | 2020-04-28 12:58 | EKG REPORT ---
SEVERITY:- NORMAL ECG - SINUS RHYTHM : Confirmed by: Eron Gracia MD 28-Apr-2020 12:57:31
--- NOTE | 2020-04-28 13:00 | RADIOLOGY REPORT (SQ) ---
EXAM DESCRIPTION: CHEST PA/LATERAL IMAGES COMPLETED DATE/TIME: 04/28/2020 11:37 am REASON FOR STUDY: PRE-OP COMPARISON: 10/03/2013 EXAM PARAMETERS: NUMBER OF VIEWS: two views TECHNIQUE: Digital Frontal and Lateral radiographic views of the chest acquired. RADIATION DOSE: NA LIMITATIONS: none FINDINGS: LUNGS AND PLEURA: No opacities, masses or pneumothorax. No pleural effusion. MEDIASTINUM AND HILAR STRUCTURES: No masses or contour abnormalities. HEART AND VASCULAR STRUCTURES: Heart normal size. No evidence for failure. BONES: No acute findings. HARDWARE: None in the chest. OTHER: No other significant finding. IMPRESSION: NO SIGNIFICANT RADIOGRAPHIC FINDING IN THE CHEST. TECHNICAL DOCUMENTATION: JOB ID: [id number] 2010 [employer]- All Rights Reserved Reading location - IP/workstation name: [email or web address]
[~2020-05-05 09:27] MED LIST: LACTATED RINGERS 1000 ML IV PRN; LIDOCAINE 0.5% INJ-PF (5 MG/ML) 50 ML SDV SUBCUT PRN
[2020-05-05] MEDS ORDERED: BUPIVACAINE HCL 0.5%/EPI 1:200000 INJ 1.8 ML CARTRIDGE ONE (09:53)
[2020-05-05] MEDS ORDERED: OXYMETAZOLINE HCL 0.05% NASAL SPRAY 15 ML BOTTLE ONE (09:53)
[2020-05-05] MEDS ORDERED: MIDAZOLAM 2 MG/2 ML INJ ONE (10:04)
[2020-05-05] MEDS ORDERED: DEXMEDETOMIDINE INJ 80 MCG/20 ML VIAL IV ONE (10:04)
[2020-05-05] MEDS ORDERED: FENTANYL CITRATE INJ/PF 250 MCG/5 ML AMPULE ONE (10:04)
[2020-05-05] MEDS ORDERED: PROPOFOL INJ 200 MG/20 ML VIAL IV ONE (10:04)
[2020-05-05] MEDS ORDERED: ONDANSETRON HCL INJ/PF 4 MG/2 ML SDV ONE (10:04)
[2020-05-05] MEDS ORDERED: DEXAMETHASONE SOD PHOSPHATE INJ 4 MG/1 ML VIAL ONE ×4 (10:04→14:10)
[2020-05-05] MEDS ORDERED: LIDOCAINE 2% INJ-PF (100 MG/5 ML) SYRINGE ONE (10:05)
[2020-05-05] MEDS ORDERED: PROMETHAZINE HCL INJ 25 MG/1 ML VIAL IV PRN ×2 (10:45)
[2020-05-05] MEDS ORDERED: FENTANYL CITRATE INJ/PF 100 MCG/2 ML AMPUL IV PRN ×2 (10:45)
[2020-05-05] MEDS ORDERED: MEPERIDINE HCL/PF INJ 25 MG/1 ML DISP.SYRIN IV PRN (10:45)
[2020-05-05] MEDS ORDERED: ONDANSETRON HCL INJ/PF 4 MG/2 ML SDV IV PRN ×2 (10:45→11:47)
[2020-05-05] MEDS ORDERED: DIPHENHYDRAMINE HCL 50 MG/ML VIAL IV PRN (10:45)
[2020-05-05] MEDS ORDERED: ACETAMINOPHEN 1,000 MG/100 ML RTUPB IV ONE ×2 (11:44→13:00)
[2020-05-05] MEDS ORDERED: OXYCODONE-ACETAMINOPHEN 5-325 MG TABLET PO PRN (11:44)
[2020-05-05] MEDS: HYDROMORPHONE HCL INJ/PF 2 MG/ML AMPULE ONE ×2 (11:45→12:00)
[2020-05-05] MEDS ORDERED: HYDROMORPHONE HCL INJ/PF 2 MG/ML AMPULE IV PRN (12:08)
[2020-05-05] MEDS ORDERED: OXYCODONE-ACETAMINOPHEN 5-325 MG TABLET ONE (12:40)
[2020-05-05 14:01] VITALS: BP 125/67
[2020-05-05] MEDS ORDERED: METOPROLOL TARTRATE PF/INJ 5 MG/5 ML SDV IV ONE (14:10)
[2020-05-05] MEDS ORDERED: GLYCOPYRROLATE 1 MG/5 ML VIAL ONE (14:10)
--- NOTE | 2020-05-09 07:49 | Operative Report ---
Operative Report-[facility] Operative Report: DATE OF OPERATION: May 05, 2020 PREOPERATIVE DIAGNOSIS: 1. Acute recurrent tonsillitis 2. Chronic tonsillitis 3. Chronic recurrent tonsil stones 4. Tonsillar hypertrophy 5. Obstructive sleep apnea POSTOPERATIVE DIAGNOSIS: 1. Acute recurrent tonsillitis 2. Chronic tonsillitis 3. Chronic recurrent tonsil stones 4. Tonsillar hypertrophy 5. Obstructive sleep apnea PROCEDURE: 1. Bilateral tonsillectomy patient age greater than 12 years old Primary Surgeon of Record: Dr. Baldev Gray SAUSAGE LINKER: None Anesthesia Staff: JUAN Chang ANESTHESIA: General Endotracheal Tube Anesthesia DRAINS: None SPONGE COUNT: Verified Needle Count: N/A SPECIMEN/MATERIALS FORWARD TO THE LAB: 1. Left and Right Tonsillar Tissue ESTIMATED BLOOD LOSS: 10 mL IV FLUIDS: 500 mL COMPLICATIONS: None Findings: 1. Tonsils were 2-3+ in size, or cryptic in nature, and there was tonsillar debris present bilateral. 2. The soft palatal tissues were significantly redundant in nature and the uvula was thickened and elongated in appearance. Adenoid tissue was 1+ in size and the mira were easily visualized. INDICATIONS: This is a 40-year-old -[place] male patient who was seen and evaluated in the [place] otolaryngology office. The patient had been referred for and the patient complained of a history of difficulty with acute recurrent tonsillitis, chronic tonsillitis, and chronic recurrent tonsil stones. 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 After extensive discussion with the patient the recommendation and plan was to proceed with a bilateral tonsillectomy. The procedures and all of the risks and complications were all discussed in detail with the patient. He voiced an understanding of the described surgical plan, were in agreement, and consent was obtained. DESCRIPTION OF OPERATIVE PROCEDURE: The patient was taken to the main operating room and was placed on the operating room table in the supine position. Appropriate monitors were placed. Using mask and IV access general anesthesia wa s induced. The patient was next transorally intubated without difficulty. The table was then rotated 90 and the patient was positioned and prepped for tonsil surgery. The lips, teeth, tongue, and gums were inspected and noted to be without defect. The patient had a mouth gag inserted. It was opened and the patient was placed into suspension. There was a soft catheter passed through the nose that was used to suspend the soft palate. Findings are as noted above. At this point Marcaine with epinephrine was administered into the peritonsillar tissues and soft palate region. The plasma J-hook device was used to dissect and remove the tonsils from the tonsillar fossae without difficulty. This was also used to provide adequate hemostasis. Normal saline irrigation was performed and was suctioned. Adequate hemostasis was noted. The soft catheter was released and removed from the patients nose. The patient was next released from suspension and the mouth gag was closed. It was opened again and there was again no bleeding noted. It was then removed from the patient's mouth without difficulty. There was no damage to the lips, teeth, tongue, or gums noted. The patient was then returned to the anesthesia staff and was allowed to emerge from general anesthesia. The patient was extubated in the operating room and was transported to the post anesthesia recovery unit in stable condition. There were no complications.
== END 2020-05-05 13:45 | disposition home or self-care (01) ==
LOC: OROUT 09:27
PROVIDERS: ATTEND Otolaryngology
DX: J35.1 Hypertrophy of tonsils (principal); G47.33 Obstructive sleep apnea (adult) (pediatric); J34.3 Hypertrophy of nasal turbinates; Z03.818 Encounter for observation for suspected exposure to other biological agents ruled out; K21.9 Gastro-esophageal reflux disease without esophagitis; I10 Essential (primary) hypertension; E11.9 Type 2 diabetes mellitus without complications; Z79.899 Other long term (current) drug therapy; Z79.84 Long term (current) use of oral hypoglycemic drugs; E66.01 Morbid (severe) obesity due to excess calories
CPT/HCPCS: 93005; 36415; 82962; 85027; 87635; 80048; 83036; 88304 ×2; 71046; 93010; 00170; 42826; J2250; J3490 ×4; J1100; J3010; J2001; J1170; J2405; J2704; J0131; C9803; 170